=== PATIENT | female | born 1980 | race Caucasian/White ===

== ENCOUNTER 2019-03-26 11:09 | Emergency (ER) | payer MEDICAID, SELFPAY ==
[2019-03-26 11:49] VITALS: BP 108/73; PULSE 86; RESP 16; TEMP 36.5; O2SAT 99; BMI 21.6
--- NOTE | 2019-03-26 13:31 | ED_ITS ---
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 MD complaint: abscess/boil Onset (ago): day(s) Location: buttocks Severity: moderate Pain Consistency: constant Associated symptoms: Reports no associated symptoms; Deny chills, fever(s), nausea or vomiting Review of Systems Const: Denies: fever or chills GI: Denies: nausea or vomiting PFSH ED PFSH: Statuses (acute, chronic, etc) shown below reflect problem list status as previously entered and may not be historically accurate Social History Smoking and tobacco status: current every day smoker Physical Exam Const: COMMON NORMALS: no apparent distress, average body habitus, oriented x3, no limitations, healthy appearing, alert and well nourished Lymph: LYMPHATIC: no lymphadenopathy noted Neuro: COMMON NORMALS: oriented x3 SENSORIUM/ORIENTATION: Yes alert Skin: NARRATIVE SKIN EXAM: pt with 1.5 inch indurated abscess to inferior R buttock; no fluctuance/drainage noted; erythema localized to abscess and no surrounding cellulitis Course ED course: abscess not amendable to I&D at this time Vital Signs: Vital signs: Vital Signs Temperature 97.7 F 03/26/19 11:49 Pulse Rate 86 03/26/19 11:49 Respiratory Rate 16 03/26/19 11:49 Blood Pressure 108/73 03/26/19 11:49 Pulse Oximetry 99 03/26/19 11:49 Discharge Plan Discharge Patient Disposition: Home, Self-Care Clinical Impression: Abscess of skin or subcutaneous tissue Condition: Stable Discharge Orders: Discharge Order (Routine); Ordered 03/26/19 Ordered By: Marifer Guajardo Discharge Diet: Usual diet Discharge Activity: Increase activity as tolerated Patient Instructions: Abscess (ED) Activity Restrictions/Additional Instructions: Sitz baths several times daily. Avoid picking. Follow up with medical provider if abscess continues to worsen despite antibiotic therapy x 48 hours. Coding Level of Care Code ED Aerial Photograph Interpreter for Joseph Morgan
--- NOTE | 2019-03-26 13:46 | PC.NURSE ---
pt has abscess to left buttocks. swelling, redness, warmth, and tenderness noted. no drainage noted
[2019-03-26 13:54] VITALS: BP 93/75; PULSE 81; O2SAT 96
== END 2019-03-26 13:54 | disposition home or self-care (01) ==
PROVIDERS: Emergency Provider Physician Assistant
DX: L02.31 Cutaneous abscess of buttock (principal); F17.210 Nicotine dependence, cigarettes, uncomplicated
CPT/HCPCS: 99281

== ENCOUNTER 2019-09-16 00:26 | Emergency (ER) | payer MEDICAID, SELFPAY ==
[2019-09-16 00:40] VITALS: BP 121/64; PULSE 95; RESP 16; TEMP 36.6; O2SAT 98; BMI 24.7
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
[2019-09-16] MEDS: acetaminophen 500 mg Tablet 1000 MG PO (01:11)
[2019-09-16 02:07] LABS: Add Urine Microscopic? NO
[2019-09-16 02:30] LABS: Bilirubin Urine Neg (NEGATIVE); Blood Urine Neg (Negative); Glucose Urine UA Norm (Normal); Ketones Urine Negative (Negative); Leukocyte Esterase Urine Negative (Negative); Nitrate Urine Negative (Negative); Protein Urine Neg (Negative); Urine Appearance Clear (CLEAR); Urine Color Yellow (Yellow); Urobilinogen Urine Norm (Negative); pH Urine 5 (5-7)
[2019-09-16 02:34] VITALS: BP 128/104; PULSE 84; RESP 16; O2SAT 94
== END 2019-09-16 02:35 | disposition home or self-care (01) ==
PROVIDERS: Emergency Provider Physician Assistant
DX: S00.83XA Contusion of other part of head, initial encounter (principal); S01.81XA Laceration without foreign body of other part of head, initial encounter; Y04.2XXA Assault by strike against or bumped into by another person, initial encounter; F17.210 Nicotine dependence, cigarettes, uncomplicated
CPT/HCPCS: 12011; 12345; 70450; 70486; 72125; 81003; 99282; 99283; J2001